=== PATIENT | female | born 2000 | race African-American/Black ===

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

== ENCOUNTER 2020-08-13 11:24 | Day surgery (SDC) | payer OTHER ==
[2020-08-13 11:58] VITALS: BP 119/58; TEMP 98.2; BMI 36.1
[2020-08-13] MEDS ORDERED: hydrALAZINE 20 MG/ML VIAL SLOW IVP PRN (12:08)
[2020-08-13 12:31] LABS: Bilirubin Negative (Negative); Blood, Urine Negative (Negative); Clarity Turbid (Clear); Glucose, Urine (Dipstick) Normal (Negative); Ketone, Urine Negative (Negative); Leukocyte 500 Leu/uL (Negative); Nitrite Negative (Negative); Protein, Urine (Dipstick) 100 mg/dL (Neg-Trace); Specific Gravity, Urine 1.031 (1.002-1.036); Squamous Epithelial 21-50 HPF (0-3); WBC/HPF 21-50 HPF (0-3)
[2020-08-13 12:40] LABS: Bacteria/HPF 2+ HPF (None Seen); Yeast-Budding 1+ HPF (None Seen)
[2020-08-13 12:41] LABS: Mucous/LPF 1+ LPF (<2+); Yeast-Hyphae 1+ HPF (None Seen)
--- NOTE | 2020-08-14 03:18 | SS ---
DATE OF ADMISSION: 08/13/2020 DATE OF DISCHARGE: 08/13/2020 EVALUATING PHYSICIAN: Nickolas Plaza MD CHIEF COMPLAINT: Lower abdominal discomfort. HISTORY OF PRESENT ILLNESS: Ms. Mccain is a 19-year-old black G2, P1, with a reported last menstrual period at the end of February, who presents complaining of intermittent lower abdominal pain. She denies vaginal bleeding or ruptured membranes. But, she does report urinary frequency. The patient has had no care thus far. PAST OBSTETRICAL HISTORY: Includes one section at term for decreased heart tones. PAST MEDICAL HISTORY: None. PAST SURGICAL HISTORY: section as above. CURRENT MEDICATIONS: vitamins. ALLERGIES: NO KNOWN ALLERGIES. SOCIAL HISTORY: Denies tobacco, alcohol, or drug use. FAMILY HISTORY: Unremarkable. REVIEW OF SYSTEMS: Denies nausea, vomiting, fever, chills, ruptured membranes, or vaginal bleeding. She does report urinary frequency. PHYSICAL EXAMINATION: VITAL SIGNS: Vital signs are stable and she is afebrile. ABDOMEN: Soft, nontender, and gravid. There is no guarding or rebound. IMAGING DATA: Pelvic ultrasound shows a twin gestation with both twins in the breech presentation. Biometry is between 26 and 27 weeks. GISSELLE is within normal limits. LABORATORY STUDIES: Urinalysis, specific gravity of 1.031, urine protein 2+, and leukocyte esterase is positive. Microscopic shows a 4 to 6 rbc's, 21 to 50 wbc's, and 2+ bacteria. ASSESSMENT: 1. 26th to 27th week twin 2. Urinary tract infection. PLAN: The patient will be dismissed to home with a prescription for Keflex 500 mg one p.o. q.i.d. for seven days. She states that she has an upcoming appointment with Jovita Carrera at [facility]. I have urged her to move the appointment up and to be seen as soon as she can. Job ID: [id number] [facility]
[2020-08-14] MEDS ORDERED: FLU VACC QS2020-21(6MOS UP)/PF 60 MCG/0.5 ML SYRINGE IM ONE (09:00)
--- NOTE | 2020-08-14 10:47 | ULT ---
Obstetrical ultrasound: 08/13/2020 COMPARISON: None HISTORY: Twin gestation TECHNIQUE: Multiplanar grayscale sonographic imaging of the gravid uterus obtained FINDINGS: A twin gestation is noted. Twin A demonstrates transverse presentation with head to maternal left. Twin A heart rate 140 b pm. anatomy for twin A is not fully evaluated. The four-chamber heart view is suboptimal. The stomach, urinary bladder and partially imaged spine appear grossly unremarkable. Three-vessel cord no argenis. Umbilical cord insertion site appears within normal limits. Twin B demonstrates a breech presentation and a heart rate of 158 bpm. anatomy of twin B is incompletely assessed. Stomach, spine and partially imaged intracranial co ntents unremarkable. Four-chamber heart view unremarkable. Three-vessel cord noted. Region of the kidneys appears grossly unremarkable. Amniotic fluid index is 19.1 cm. Placenta located posteriorly demonstrating no evidence for previa or abruption. biometry: Twin A: Biparietal diameter 6.4 cm 25 weeks 5 days Head circumference 24.3 cm 26 weeks 3 days Abdominal circumference 22.3 cm 26 weeks 5 days Femur length 4.9 cm 26 weeks 2 days Estimated weight 944 g +/- 140 g. Average age based on ultrasound 26 weeks 2 days. Estimated da te of delivery 11/17/2020. Twin B: Biparietal diameter 6.9 cm 27 weeks 4 days Head circumference 25.6 cm 27 weeks 6 days Abdominal circumference 23.6 cm 27 weeks 6 days Femur length 5.3 cm 28 weeks 1 days Estimated weight 1153 g +/- 171 g. Average age based on ultrasound 27 weeks 6 days. Estimated date of delivery 11/06/2020. IMPRESSION: Intrauterine gestation as detailed above. anatomy is not fully assessed on this exa mination. Transcribed Date/Time: 08/14/2020 10:47 AM
== END 2020-08-13 14:10 | disposition home health service (06) ==
LOC: L&D/OP 11:24
PROVIDERS: ATTEND Obstetrics & Gynecology
DX: O23.42 Unspecified infection of urinary tract in pregnancy, second trimester (principal); B96.89 Other specified bacterial agents as the cause of diseases classified elsewhere; O32.2XX1 Maternal care for transverse and oblique lie, fetus 1; O32.1XX2 Maternal care for breech presentation, fetus 2; O30.002 Twin pregnancy, unspecified number of placenta and unspecified number of amniotic sacs, second trimester; O34.219 Maternal care for unspecified type scar from previous cesarean delivery; Z3A.26 26 weeks gestation of pregnancy
CPT/HCPCS: 76805; 81003; 81015; 87086

== ENCOUNTER 2020-08-14 22:55 | Day surgery (SDC) | payer MEDICAID, OTHER ==
[2020-08-15] MEDS ORDERED: hydrALAZINE 20 MG/ML VIAL SLOW IVP PRN ×2 (00:25→07:13)
[2020-08-15 01:04] VITALS: BMI 36.1
[2020-08-15] MEDS ORDERED: FLU VACC QS2020-21(6MOS UP)/PF 60 MCG/0.5 ML SYRINGE IM ONE (01:31)
--- NOTE | 2020-08-15 08:25 | HP ---
PRIMARY OB: None. CHIEF COMPLAINT: Right lower quadrant pain. HISTORY OF PRESENT ILLNESS: The patient is a 19-year-old G2, P1, with a newly diagnosed twin gestation at around 28 weeks, who presented to Labor and Delivery today with a 1-day history of right lower quadrant pain. The patient reports that the pain is sharp in nature. It is worse with activity and movement, such as getting out of bed and rolling over in bed. She denies contractions, vaginal bleeding, leakage of fluid. The patient was seen yesterday and was diagnosed with the UTI and prescribed Keflex for which she has not picked up her prescription yet. She does have plans on seeing Ms. Jovita Carrera in the very near future with an already scheduled visit. The patient reports that this pain overall has gotten better since it is worst moments today. The patient denies fever. She reports cough with allergies. Denies chest pain or shortness of breath. Denies nausea, vomiting, diarrhea, constipation, hip problems, knee problems, muscle weakness. Denies any new rashes, vaginal bleeding, leakage of fluid, urinary urgency or frequency. PAST MEDICAL HISTORY: Negative. PAST SURGICAL HISTORY: She has had 1 prior . ALLERGIES: NO KNOWN DRUG ALLERGIES. MEDICATIONS: vitamins. SOCIAL HISTORY: Denies drug, alcohol, tobacco use. REVIEW OF SYSTEMS: Per HPI. PHYSICAL EXAMINATION: VITAL SIGNS: Blood pressure 101/51, heart rate 93, saturating 98% on room air, temperature GENERAL: She appears to be in no acute distress. She is alert and oriented, cooperative, and pleasant to interact with. HEAD: Normocephalic, atraumatic. LUNGS: Clear to auscultation bilaterally. HEART: Regular rate and rhythm. ABDOMEN: Gravid, soft, nontender. She does have some slight tenderness to palpation with deviation of the uterus to the patient's left replicating the pain that she came in for. EXTREMITIES: Nontender, nonedematous. : Has been deferred. tracings were difficult to obtain as the baby is very active. We did get some tracing showing one baby appeared to have a baseline in the 130s with moderate variability, positive accelerations and other baby, which was more difficult to trace, appeared to be possibly in the 120s. Biophysical profiles were performed on both babies, which was 88. An ultrasound for chorionicity and placentation was also performed and that report is pending, though on imaging there does appear to be two amniotic sacs. ASSESSMENT AND PLAN: The patient is a 19-year-old female with a newly diagnosed twin gestation, presenting with right lower quadrant pain that by history and physical exam is most consistent with musculoskeletal pains of . The patient has been reminded the need for her to take her antibiotics, which have been recently prescribed. Also reviewing her culture shows yeast, but she has been encouraged to take one [id number] vaginal yeast product. Babies are reassuring by biophysical profile. She has an appointment with [facility] [place], which we have encouraged that she keep and has actually been recommended by the previous providers here yesterday to contact them to make an appointment as soon as possible. The patient is being discharged home. Job ID: [id number]
--- NOTE | 2020-08-15 08:39 | ULT ---
OB ULTRASOUND: INDICATION: Pelvic pain. Twin gestation. FINDINGS: Twin gestation is identified. TWIN A: Twin A is breech presentation. Placenta is posterior. heart rate 136. Amniotic fluid volume: Adequate. Anatomy: Visualized anatomy included 4-chamber heart, stomach, cord insertion, lips, nose, and extre mities. Intracranial contents were not adequately evaluated due to positioning. TWIN A biophysical profile: tone: Score 2. breathing: Score 2. movement: Score 2. Amniotic fluid: Score 2. Total Score: 8/8. TWIN B: Position is transverse with head to maternal left. Placenta: Posterior. Amniotic fluid: Adequate. heart rate: 143 b.p.m. Anatomy: Four-chamber heart, stomach, cord insertion, bladder, lips, nose, and extremities were imag ed. Three-vessel cord was noted. Twin B biophysical profile: tone: Score 2. breathing: Score 2. movement: Score 2. Amniotic fluid: Score 2. Total Score: 8/8. The technologists denotes a monochorionic-diamniotic gestation. Cervical length: 3.7 cm. GISSELLE: 17.5 cm. POS: [facility]
--- NOTE | 2020-08-15 08:40 | ULT ---
TWIN A BIOPHYSICAL PROFILE: tone: Score 2. breathing: Score 2. movement: Score 2. Amniotic fluid: Score 2. Total score: 8/8. See separate OB ultrasound report. POS: [facility]
--- NOTE | 2020-08-15 08:41 | ULT ---
BIOPHYSICAL PROFILE TWIN B: tone: Score 2. breathing: Score 2. movement: Score 2. Amniotic fluid: Score 2. Total score: 8/8. See separate OB ultrasound report. POS: [facility]
== END 2020-08-15 02:18 | disposition home or self-care (01) ==
LOC: L&D/OP 22:55
PROVIDERS: ATTEND Student in an Organized Health Care Education/Training Program
DX: O99.891 Other specified diseases and conditions complicating pregnancy (principal); R10.31 Right lower quadrant pain; O23.43 Unspecified infection of urinary tract in pregnancy, third trimester; O32.1XX1 Maternal care for breech presentation, fetus 1; O32.2XX2 Maternal care for transverse and oblique lie, fetus 2; O30.033 Twin pregnancy, monochorionic/diamniotic, third trimester; O98.813 Other maternal infectious and parasitic diseases complicating pregnancy, third trimester; B37.9 Candidiasis, unspecified; Z3A.28 28 weeks gestation of pregnancy
CPT/HCPCS: 76810; 76819

== ENCOUNTER 2023-04-28 11:57 | Emergency (ER) | payer MEDICAID, OTHER ==
[2023-04-28 13:14] LABS: #Monocytes 0.5 thou/uL (0.11-0.59); #Neutrophils 5.7 thou/uL (1.40-6.50); %Basophils 0.3 % (0.0-1.0); %Eosinophils 0.3 % (0.0-10.0); %Lymphocytes 17.9 % (21.0-51.0); %Monocytes 6.9 % (0.0-10.0); %Neutrophils 74.2 % (42.0-75.0); Hemoglobin 12.4 g/dL (12.0-16.0); Mean Corpuscular HGB CONC 33.4 g/dL (32.0-36.0); Mean Corpuscular Hemoglobin 28.5 pg (27.0-31.0); Mean Corpuscular Volume 85.3 fl (78.0-98.0); Mean Platelet Volume 11.8 fL (7.4-10.4); Platelet Count 234 10x3/uL (130-400); RBC Distribution Width 12.9 % (11.5-14.5); Red Blood Cell (RBC) Count 4.35 mill/uL (4.20-5.40); White Blood Cell (WBC) Count 7.7 10x3/uL (4.8-10.8)
[2023-04-28 13:38] LABS: ALT (SGPT) 11 U/L (8-55); AST (SGOT) 9 U/L (5-34); Albumin 4.1 g/dL (3.5-5.0); Alkaline Phosphatase 72 U/L (40-110); Anion Gap 11 mmol/L (10-20); BUN (Urea Nitrogen) 9 mg/dL (7.0-18.7); Bilirubin, Total 0.4 mg/dL (0.2-1.2); Calc. Creatinine Clearance 0 mL/min (70-130); Calcium 9.6 mg/dL (7.8-10.44); Carbon Dioxide 24 mmol/L (22-29); Chloride 106 mmol/L (98-107); Estimated GFR 125; Globulin 3.3 g/dL (2.4-3.5); Glucose 101 mg/dL (70-105); Potassium 4.2 mmol/L (3.5-5.1); Protein, Total 7.4 g/dL (6.0-8.3); Sodium 137 mmol/L (136-145)
[2023-04-28] MEDS ORDERED: Ondansetron ODT 4 MG TAB ONE (15:23)
[2023-04-28 15:59] LABS: Bacteria/HPF None Seen HPF (None Seen); Bilirubin Negative (Negative); Blood, Urine Trace (Negative); CAUTI Indications for Culture Pelvic or flank pain; Clarity Clear (Clear); Glucose, Urine (Dipstick) Normal (Negative); Ketone, Urine Negative (Negative); Leukocyte Negative Leu/uL (Negative); Nitrite Negative (Negative); Protein, Urine (Dipstick) 30 mg/dL (Neg-Trace); Specific Gravity, Urine 1.037 (1.002-1.036); Urobilinogen Normal mg/dL (Less than 2); WBC/HPF 0-3 HPF (0-3)
[2023-04-28 16:03] LABS: Urine Culture Reflex No No
== END 2023-04-28 16:26 | disposition home or self-care (01) ==
LOC: ERS 11:57
DX: O99.611 Diseases of the digestive system complicating pregnancy, first trimester (principal); O20.8 Other hemorrhage in early pregnancy; Z3A.09 9 weeks gestation of pregnancy
CPT/HCPCS: 36415; 76856; 80053; 81001; 84702; 85025; 86900; 86901; Q0162